=== PATIENT | female | born 1985 | race Caucasian/White ===

== ENCOUNTER 2016-11-14 23:33 | Emergency (ER) | payer BC ==
[2016-11-14 23:34] VITALS: BMI 27.3
[2016-11-14 23:57] VITALS: O2SAT 100
[2016-11-15] MEDS ORDERED: Sodium Chloride 0.9% 500 ML IV ONE (00:57)
[2016-11-15 01:25] LABS: BASO # 0.1 K/uL (0.0-0.2); BASO % 1.2 % (0.0-2.0); EOS # 0.7 K/uL (0.0-0.7); EOS % 5.8 % (0.0-4.0); HEMATOCRIT 39.6 % (34.0-47.0); LYMPH # 3.9 K/uL (1.0-4.3); LYMPH % 34.7 % (20.0-40.0); MEAN CELL VOLUME 90.3 fL (81.0-99.0); MEAN CORPUSCULAR HEMOGLOBIN 30.4 pg (27.0-31.0); MEAN CORPUSCULAR HGB CONC 33.7 g/dL (33.0-37.0); MEAN PLATELET VOLUME 7.8 fL (7.2-11.7); MONO # 0.7 K/uL (0.0-0.8); MONO % 5.9 % (0.0-10.0); RED CELL DISTRIBUTION WIDTH 13.2 % (11.5-14.5); WHITE BLOOD COUNT 11.2 K/uL (4.8-10.8)
[2016-11-15 01:28] LABS: RBC URINE 54 /hpf (0-3); URINE BILIRUBIN NEGATIVE (NEGATIVE); URINE BLOOD 2+ (NEGATIVE); URINE COLOR Yellow (YELLOW); URINE GLUCOSE (UA) NORMAL (Normal); URINE KETONE NEGATIVE (NEGATIVE); URINE LEUKOCYTE ESTERASE NEG Leu/uL (Negative); URINE PROTEIN NEGATIVE (NEGATIVE); URINE UROBILINOGEN NORMAL mg/dL (0.2-1.0); WBC URINE 1 /hpf (0-5)
[2016-11-15 01:34] LABS: CHLORIDE 100 mmol/L (98-107); POTASSIUM 4.3 mmol/L (3.6-5.2); SODIUM 139 mmol/L (132-148)
[2016-11-15 01:36] LABS: BILIRUBIN,TOTAL 0.7 mg/dL (0.2-1.3); GFR AFRICAN-AMERICAN > 60
[2016-11-15 01:37] LABS: ALB/GLOB RATIO 1.3 (1.0-2.1); ALKALINE PHOSPHATASE 72 U/L (38-126); ALT/SGPT 20 U/L (9-52); AST/SGOT 27 U/L (14-36); BLOOD UREA NITROGEN 17 mg/dL (7-17); CALCIUM 8.8 mg/dl (8.6-10.4); CARBON DIOXIDE 26 mmol/L (22-30); GLUCOSE,RANDOM 88 mg/dL (65-105); TOTAL PROTEIN 7.4 g/dL (6.3-8.3)
[2016-11-15] MEDS ORDERED: Iodixanol 320 mg/ml 150 ml Bottle IV ONE (02:06)
--- NOTE | 2016-11-15 02:36 | C.PDOC ---
Time Seen by Provider: 11/15/16 00:30 Chief Complaint (Nursing): Female Genitourinary Recent travel outside of the [place]: No Past Medical History Vital Signs: Last Vital Signs Temp 98.1 F 11/14/16 23:55 Pulse 70 11/14/16 23:55 Resp 16 11/14/16 23:55 BP 100/64 11/14/16 23:55 Pulse Ox 100 11/14/16 23:55 - [facility] Procedures MANUAL ASSIST DELIV NEC (03/25/15) Family History: States: Unknown Family Hx - Social History Hx Alcohol Use: No Hx Substance Use: No - Immunization History Hx Tetanus Toxoid Vaccination: No Hx Influenza Vaccination: No Hx Pneumococcal Vaccination: No ED Course And Treatment - Laboratory Results Result Diagrams: 11/15/16 01:18 11/15/16 01:18 O2 Sat by Pulse Oximetry: 100
--- NOTE | 2016-11-15 02:41 | C.PDOC ---
History Of Present Illness 31 yo female w/o significant PMHx come in for evaluation of intermittent RLQ pain for past few weeks associated with intermittent nausea. Otherwise, pt denies high fever, chills, sore throat, vomiting, diarrhea, back pain, UTI sx. Pt also reports IUD removal " slipped down early today". Pt admits, currently has menstrual period. Ambulate to ED for evaluation, not in any apparent distress. Time Seen by Provider: 11/15/16 00:30 Chief Complaint (Nursing): Female Genitourinary History Per: Patient Onset/Duration Of Symptoms: Intermittent Episodes, Gradual Current Symptoms Are (Timing): Still Present Past Medical History Reviewed: Historical Data, Nursing Documentation, Vital Signs Vital Signs: Last Vital Signs Temp 98.1 F 11/14/16 23:55 Pulse 70 11/14/16 23:55 Resp 16 11/14/16 23:55 BP 100/64 11/14/16 23:55 Pulse Ox 100 11/15/16 02:45 - Medical History PMH: No Chronic Diseases Surgical History: No Surg Hx - [facility] Procedures MANUAL ASSIST DELIV NEC (03/25/15) Family History: States: No Known Family Hx - Social History Hx Alcohol Use: No Hx Substance Use: No - Immunization History Hx Tetanus Toxoid Vaccination: No Hx Influenza Vaccination: No Hx Pneumococcal Vaccination: No Review Of Systems Except As Marked, All Systems Reviewed And Found Negative. Constitutional: Negative for: Fever, Chills ENT: Negative for: Throat Pain Cardiovascular: Negative for: Chest Pain, Palpitations Respiratory: Negative for: Cough, Shortness of Breath Gastrointestinal: Positive for: Nausea, Abdominal Pain. Negative for: Vomiting , Diarrhea Genitourinary: Negative for: Dysuria, Frequency Musculoskeletal: Negative for: Neck Pain, Back Pain Skin: Negative for: Rash Neurological: Negative for: Weakness, Numbness, Altered Mental Status, Headache , Dizziness Physical Exam - Physical Exam Appears: Well, Non-toxic, No Acute Distress Skin: Normal Color, Warm, Dry, No Rash Head: Normacephalic Eye(s): bilateral: Normal Inspection Nose: Normal, No Discharge Oral Mucosa: Moist, No Drooling Throat: Normal, No Erythema, No Exudate, No Drooling Neck: Normal, Normal ROM, Supple Cardiovascular: Rhythm Regular Respiratory: Normal Breath Sounds, No Stridor, No Wheezing Gastrointestinal/Abdominal: Bowel Sounds (normal), Soft, Tenderness (mild RLQ tenderness), No Distention, No Guarding, No Rebound Back: Normal Inspection, No CVA Tenderness Pelvic: Vaginal Bleeding (scant vaginal bleeding noted ( currently has MP)), No Cervical Motion Tenderness, Other (IUD visualized in vaginal canal and easily removed) Extremity: Normal ROM, No Tenderness, No Pedal Edema Neurological/Psych: Oriented x3, Normal Speech ED Course And Treatment - Laboratory Results Result Diagrams: 11/15/16 01:18 11/15/16 01:18 Lab Interpretation: Normal O2 Sat by Pulse Oximetry: 100 Pulse Ox Interpretation: Normal - CT Scan/US CT abd/pelvis Other Rad Studies (CT/US): Radiology Report Reviewed CT/US Interpretation: EXAM: CT Abdomen and Pelvis With Intravenous Contrast. CLINICAL HISTORY: 31 years old, female; Pain; Abdominal pain; Localized; Right lower quadrant (rlq); Additional info: Rlq. pain. TECHNIQUE: Axial computed tomography images of the abdomen and pelvis with intravenous contrast. This CT. exam was performed using one or more of the following dose reduction techniques: automated. exposure control, adjustment of the mA and/or kV according to patient size, and/or use of iterative. reconstruction technique. Coronal and sagittal reformatted images were created and reviewed. CONTRAST: 100 mL of visipaque administered intravenously. COMPARISON: No relevant prior studies available. FINDINGS: Lower thorax: Minimal atelectasis/scarring. ABDOMEN: Liver: Unremarkable. No mass. Gallbladder and bile ducts: No calcified stones. No ductal dilation. Pancreas: No ductal dilation. No mass. Spleen: No splenomegaly. Adrenals: No mass. Kidneys and ureters: No mass. No hydronephrosis. Stomach and bowel: No definite mural thickening. No obstruction. Appendix: Normal caliber. No definite inflammation. PELVIS: Bladder: Unremarkable. Reproductive: Unremarkable as visualized. ABDOMEN and PELVIS: Intraperitoneal space: Trace free fluid within pelvis. No free air. Bones/joints: No acute fracture. Soft tissues: Unremarkable. Vasculature: Unremarkable. No abdominal aortic aneurysm. Lymph nodes: No pathologically enlarged lymph nodes. IMPRESSION: 1. No definite acute intraabdominal abnormality. 2. Incidental/non-acute findings are described above. Thank you for allowing us to participate in the care of your patient. Dictated and Authenticated by: Que Maradiaga MD. 11/15/2016 2:58 AM Eastern Time ([place] & [place]) Progress Note: Adrenals: No mass. Kidneys and ureters: No mass. No hydronephrosis. Stomach and bowel: No definite mural thickening. No obstruction. Appendix: Normal caliber. No definite inflammation. PELVIS: Bladder: Unremarkable. Reproductive: Unremarkable as visualized. ABDOMEN and PELVIS: Intraperitoneal space: Trace free fluid within pelvis. No free air. Bones/joints: No acute fracture. Soft tissues: Unremarkable. Vasculature: Unremarkable. No abdominal aortic aneurysm. Lymph nodes: No pathologically enlarged lymph nodes. IMPRESSION: 1. No definite acute intraabdominal abnormality. 2. Incidental/non-acute findings are described above. Thank you for allowing us to participate in the care of your patient. Dictated and Authenticated by: Que Maradiaga MD. 11/15/2016 2:58 AM Eastern Time ([place] & [place]) Disposition Counseled Patient/Family Regarding: Studies Performed, Diagnosis, Need For Followup - Disposition Referrals: [facility] [Outside] [facility] [Outside] Disposition: HOME/ ROUTINE Disposition Time: 03:05 Condition: STABLE Additional Instructions: Follow up with PMD and [facility] in 2-3 days for re-evaluation. Return to ED if any worsening or new changes. Instructions: Abdominal Pain (ED), Vaginal Foreign Body (ED) Print Language: POLISH - Clinical Impression Clinical Impression: Abdominal pain, Encounter for IUD removal Procedures - Foreign Body Removal Consent Obtained: verbal consent Time Out Performed: Yes Site: vagina Description of foreign body: other (IUD) Sedation/Analgesia: none Technique: manual removal Confirmed by:: direct visualization Complications:: None Neurovascular: Normal distal pulse, Normal capillary
--- NOTE | 2016-11-15 02:58 | CT ---
EXAM: CT Abdomen and Pelvis With Intravenous Contrast. CLINICAL HISTORY: 31 years old, female; Pain; Abdominal pain; Localized; Right lower quadrant (rlq); Additional info: Rlq pain TECHNIQUE: Axial computed tomography images of the abdomen and pelvis with intravenous contrast. This CT exam was performed using one or more of the following dose reduction techniques: automated exposure control, adjustment of the mA and/or kV according to patient size, and/or use of iterative reconstruction technique. Coronal and sagittal reformatted images were created and reviewed. CONTRAST: 100 mL of visipaque administered intravenously. COMPARISON: No relevant prior studies available. FINDINGS: Lower thorax: Minimal atelectasis/scarring. ABDOMEN: Liver: Unremarkable. No mass. Gallbladder and bile ducts: No calcified stones. No ductal dilation. Pancreas: No ductal dilation. No mass. Spleen: No splenomegaly. Adrenals: No mass. Kidneys and ureters: No mass. No hydronephrosis. Stomach and bowel: No definite mural thickening. No obstruction. Appendix: Normal caliber. No definite inflammation. PELVIS: Bladder: Unremarkable. Reproductive: Unremarkable as visualized. ABDOMEN and PELVIS: Intraperitoneal space: Trace free fluid within pelvis. No free air. Bones/joints: No acute fracture. Soft tissues: Unremarkable. Vasculature: Unremarkable. No abdominal aortic aneurysm. Lymph nodes: No pathologically enlarged lymph nodes. IMPRESSION: 1. No definite acute intraabdominal abnormality. 2. Incidental/non-acute findings are described above.
[2016-11-15 03:29] VITALS: BP 118/64; PULSE 63; RESP 15; TEMP 98.3
== END 2016-11-15 03:23 | disposition home or self-care (01) ==
LOC: C.ER 23:33
DX: R10.31 Right lower quadrant pain (principal); Z30.432 Encounter for removal of intrauterine contraceptive device
CPT/HCPCS: 74177; 80053; 81001; 83690; 84703; 85025; 96374; 99285; J1885; J7040; Q9965

== ENCOUNTER 2017-08-17 20:25 | Emergency (ER) | payer BC ==
[2017-08-17] MEDS ORDERED: Lactated Ringer's 1,000 ML IV ONE (21:04)
[2017-08-17 22:19] LABS: RBC URINE 3 /hpf (0-3); TRANSITIONAL EPITHIAL 1 /hpf (0-3); URINE BACTERIA OCC (<OCC); URINE BILIRUBIN NEGATIVE (NEGATIVE); URINE BLOOD NEGATIVE (NEGATIVE); URINE COLOR Yellow (YELLOW); URINE GLUCOSE (UA) NORMAL (Normal); URINE KETONE NEGATIVE (NEGATIVE); URINE PROTEIN NEGATIVE (NEGATIVE); WBC URINE 8 /hpf (0-5)
[2017-08-17 22:20] LABS: URINE LEUKOCYTE ESTERASE 1+ Leu/uL (Negative)
--- NOTE | 2017-08-17 23:11 | US ---
EXAM: US After First Trimester, Transabdominal CLINICAL HISTORY: 32 years old, female; Signs and symptoms; Other: Dfm; ; Additional info: Decreased movement TECHNIQUE: Real-time transabdominal obstetrical ultrasound of the maternal pelvis and a second or third trimester with image documentation. COMPARISON: No relevant prior studies available. FINDINGS: Fetus: Single live intrauterine gestation. Heart rate: heart rate of 140 beats per minute. Presentation: Vertex. Placenta: No placenta previa or abruption. Posterior fundal. Amniotic fluid: Mildly echogenic amniotic fluid with internal echoes. TRISTAN = 12.2 cm. Anatomy: No gross anomaly is appreciated. BIOMETRICS Gestational age by US: Estimated gestational age of 36 weeks 0 days by measurements. EFW: Estimated weight of 3050 g. BPD: 8.7 cm, correlating with 35 weeks 1 day. Fundal placenta. HC: 31.3 cm, correlating with 35 weeks 0 days. AC: 34.4 cm, correlating with 38 weeks 2 days. FL: 6.9 cm, correlating with 35 weeks 2 days. MATERNAL: Uterus: Unremarkable. No myometrial mass. Cervix: Not adequately visualized. Free fluid: No free fluid. IMPRESSION: 1. Single live intrauterine gestation. 2. Echogenic amniotic fluid. Clinical correlation is needed. EXAM: US Biophysical Profile Without Non-Stress Testing CLINICAL HISTORY: 32 years old, female; Signs and symptoms; Other: Dfm; ; Additional info: Decreased movement TECHNIQUE: Real-time ultrasound of the maternal pelvis for biophysical profile evaluation with image documentation. COMPARISON: No relevant prior studies available. FINDINGS: breathing movements: Present. Score 2/2. Gross body movements: Present. Score 2/2. tone: Present. Score 2/2. Qualitative amniotic fluid volume: Within normal limits. Score 2/2. IMPRESSION: Normal biophysical profile ultrasound. Score 8/8.
--- NOTE | 2017-08-17 23:35 | OBHP ---
Datetime: 08/17/2017 21:05 IP Adm Impression: , intrauterine ; No Active Labor IP Adm Impression Other: bpp8/8 IP Admit Plan: Discharge home Admit Comment, IP Provider: Patient is a 32 year old at 35w0d ADRIEL 09/21/17 by LMP presents to L+D from the office for abdominal pain and back pain x 1 week. Abdominal pain is right-sided. Patien t states that pain is constant, rates 5/10. Back pain radiates down right leg. Patient also states th at she has been having decreased movement since yesterday. Denies VB or LOF. Patient was seen i n the office today and had a cervical exam performed. Patient is a private patient of Dr Moya. Issues: Abnormal 1 hr GCT ?, 3hr GTT not done yet (per the patient) OB Hx: 1. 2002 at 38 weeks, female infant, 7lbs 1/2 oz, no complications 2. 2007 SAB, D+C 3. 2007 SAB, D+C 4. 2007 at 38 weeks, female , 7lbs 0oz, no complications 5. 2009 at 38 weeks, female infant, 6lbs 1/2oz, no complications 6. 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 Triad: 13 x regular x 3-5 days Hx of ovarian cysts Denies hx of fibroids, STIs, abnormal pap smears Allergies: NKDA Medications: PNV Medical Hx: Denies Surgical Hx: D+C x 2 Social Hx: Denies alcohol, tobacco, drug use Family Hx: Mother - healthy; Father - healthy PE: See above A/P: 32 year old at 35w0d presents with contractions, decreased FM -Stable, afebrile -CEFM and TOCO -IV fluid hydration -UA ordered -Will send for BPP -Plan discussed with attending Elizabeth Mckeon DO PGY-1 OB attending Patientw ith c/o abdominal painand decreased moevembt On arrival 3-4 cm dilated.essentially same exam as exam in offie.[facility] with irregular ctx initiall y which spaced out with iv fluids bpp 8/8 Cervix re-examined 2 hoirs alter and unchanged patient feel the discomfort is resolved patient discharged home follow up with dr cleary this week labor precautions given Extremities - PN: Normal Abdomen - PN: Normal Lungs - PN: Normal Heart - PN: Normal General - PN: Normal FHR - Baseline A Provider: 140 Contraction Comments Provider: occasional Comments, ACOG Physical Exam: VSS Gen: AAOx3, uncomfortable Abd: Soft, gravid Ext: No clubbing, cyanosis, edema SVE: 3-4/70/-3 EGA AdmitDate IP: 35.0 Vital Signs Provider: Reviewed IP Chief Complaint: Uterine contractions; Decreased movement NICHD Variability Prov Fetus A: Moderate 6-25bpm FHR Category Provider Fetus A: Category I NICHD Decel Fetus A IP Provider: None Dilatation, Provider: 3-4 Effacement, Provider: 70 Station, Provider: -3
[2017-08-18 03:59] VITALS: BP 108/63; PULSE 81; RESP 20; TEMP 97.9
== END 2017-08-17 23:00 | disposition home or self-care (01) ==
LOC: C.EROB 20:25
DX: O47.03 False labor before 37 completed weeks of gestation, third trimester (principal); O36.8130 Decreased fetal movements, third trimester, not applicable or unspecified; Z3A.36 36 weeks gestation of pregnancy
CPT/HCPCS: 76815; 76818; 81001; 99283; J7120

== ENCOUNTER 2017-08-28 07:58 | Inpatient (IN) | payer BC ==
[2017-08-28 09:15] VITALS: BMI 29.5
[2017-08-28] MEDS ORDERED: Lactated Ringer's 1,000 ML IV SCH (09:15)
--- NOTE | 2017-08-28 09:33 | OBADHP ---
Datetime: 08/28/2017 09:24 Admit Comment, IP Provider: 32yo with IUP at 38wks based on sonogram done on 03/09/17. Pt report s intermittent pelvic pain, denies VB or LOF. Pt from Dr Duff private office. [place]- irregular, FHR- 160s regular with some variables, Cx- 3-4/70/0, Vtx presentation. Assessment: IUP at 38wks im Early Labor Plan as per Dr Duff: Admit to Labor and delivery. Pitocin for augmentation of labor. Pelvic Type - PN: Adequate Extremities - PN: Normal Abdomen - PN: Normal Back - PN: Normal Lungs - PN: Normal Heart - PN: Normal Neurologic - PN: Normal General - PN: Normal Presentation-Admit: Vertex FHR - Baseline A Provider: 160 Membranes, Provider: Intact Contraction Comments Provider: Q 3-8 Comments, ACOG Physical Exam: Abd: Soft, NT, BS- present Gestation - Est Wks by US: 38.0 Vital Signs Provider: Reviewed IP Chief Complaint: Uterine contractions; Maternal discomfort NICHD Variability Prov Fetus A: Moderate 6-25bpm NICHD Accel Fetus A IP Provider: 15X15 FHR Category Provider Fetus A: Category I NICHD Decel Fetus A IP Provider: Early; Variable Dilatation, Provider: 3-4 Effacement, Provider: 70 Station, Provider: -3 Genitourinary Exam: Normal EGA AdmitDate IP: 38.0 IP Adm Impression: Term, intrauterine ; Active labor IP Admit Plan: Admit to unit; Initiate labor protocol Datetime: 08/17/2017 21:05 IP Adm Impression Other: bpp8/8
[2017-08-28] MEDS ORDERED: Oxytocin 30 UNIT 30 UNITS/500 ML BAG IV SCH (09:45)
[2017-08-28] MEDS ORDERED: Oxytocin 30 UNIT 30 UNITS/500 ML BAG IV ONE (10:48)
[2017-08-28 10:57] LABS: BASO % 0.3 % (0.0-2.0); EOS # 0.1 K/uL (0.0-0.7); EOS % 1.3 % (0.0-4.0); HEMOGLOBIN 13.1 g/dL (11.0-16.0); LYMPH # 2.4 K/uL (1.0-4.3); LYMPH % 21.7 % (20.0-40.0); MEAN CELL VOLUME 87.5 fL (81.0-99.0); MEAN CORPUSCULAR HEMOGLOBIN 29.2 pg (27.0-31.0); MEAN CORPUSCULAR HGB CONC 33.4 g/dL (33.0-37.0); MEAN PLATELET VOLUME 8.4 fL (7.2-11.7); MONO # 0.8 K/uL (0.0-0.8); MONO % 6.7 % (0.0-10.0); NEUT # 7.8 K/uL (1.8-7.0); RBC 4.48 Mil/uL (3.80-5.20); RED CELL DISTRIBUTION WIDTH 16.7 % (11.5-14.5); WHITE BLOOD COUNT 11.2 K/uL (4.8-10.8)
[2017-08-28 10:58] LABS: SQUAMOUS EPITHIAL 8 /hpf (0-5); URINE BACTERIA RARE (<OCC); URINE BILIRUBIN NEGATIVE (NEGATIVE); URINE BLOOD 1+ (NEGATIVE); URINE CLARITY Hazy (Clear); URINE COLOR Yellow (YELLOW); URINE GLUCOSE (UA) NORMAL (Normal); URINE LEUKOCYTE ESTERASE 3+ Leu/uL (Negative); URINE NITRATE NEGATIVE (NEGATIVE); URINE PROTEIN NEGATIVE (NEGATIVE)
[2017-08-28 11:01] LABS: ALB/GLOB RATIO 1.1 (1.0-2.1); ALBUMIN 3.6 g/dL (3.5-5.0); ALT/SGPT 47 U/L (9-52); AST/SGOT 29 U/L (14-36); BLOOD UREA NITROGEN 7 mg/dL (7-17); CALCIUM 9.1 mg/dl (8.6-10.4); GFR AFRICAN-AMERICAN > 60; GFR NON-AFRICAN AMERICAN > 60
[2017-08-28] MEDS ORDERED: Bupivacaine HCl/FentaNYL Cit 100 ML EPI ONE (11:33)
[2017-08-28] MEDS ORDERED: Benzocaine/Menthol 20%-0.5% Topical Spray (60 ml) TOP PRN (13:50)
[2017-08-28 17:31] LABS: BASO # 0.1 K/uL (0.0-0.2); BASO % 0.4 % (0.0-2.0); EOS % 0.2 % (0.0-4.0); HEMOGLOBIN 13.7 g/dL (11.0-16.0); LYMPH # 1.7 K/uL (1.0-4.3); MEAN CORPUSCULAR HEMOGLOBIN 28.9 pg (27.0-31.0); MEAN CORPUSCULAR HGB CONC 33.2 g/dL (33.0-37.0); MEAN PLATELET VOLUME 7.9 fL (7.2-11.7); MONO # 0.6 K/uL (0.0-0.8); MONO % 3.6 % (0.0-10.0); NEUT # 13.2 K/uL (1.8-7.0); NEUT % 84.8 % (50.0-75.0); RBC 4.74 Mil/uL (3.80-5.20); RED CELL DISTRIBUTION WIDTH 17.1 % (11.5-14.5); WHITE BLOOD COUNT 15.6 K/uL (4.8-10.8)
[2017-08-28] MEDS ORDERED: Oxycodone/Acetaminophen 5/325 mg Tab ONE (17:38)
[2017-08-28] MEDS: Oxycodone/Acetaminophen 5/325 mg Tab PO PRN ×2 (17:38→22:38)
[2017-08-29] MEDS: Oxycodone/Acetaminophen 5/325 mg Tab PO PRN ×4 (03:00→18:07)
[2017-08-29 07:56] LABS: BASO # 0.1 K/uL (0.0-0.2); BASO % 0.4 % (0.0-2.0); EOS # 0.2 K/uL (0.0-0.7); EOS % 1.5 % (0.0-4.0); HEMOGLOBIN 11.8 g/dL (11.0-16.0); LYMPH # 2.8 K/uL (1.0-4.3); LYMPH % 17.8 % (20.0-40.0); MEAN CELL VOLUME 87.4 fL (81.0-99.0); MEAN CORPUSCULAR HEMOGLOBIN 29.6 pg (27.0-31.0); MEAN CORPUSCULAR HGB CONC 33.8 g/dL (33.0-37.0); MONO # 0.8 K/uL (0.0-0.8); MONO % 5.4 % (0.0-10.0); NEUT # 11.6 K/uL (1.8-7.0); NEUT % 74.9 % (50.0-75.0); WHITE BLOOD COUNT 15.5 K/uL (4.8-10.8)
--- NOTE | 2017-08-29 15:02 | CP.PCM.PN ---
Subjective - Date & Time of Evaluation Date of Evaluation: 08/29/17 Time of Evaluation: 15:00 - Subjective Subjective: Patient denies any acute complaints. She is ambulating, voiding, tolerating regular diet. Pain is well controlled. She is currently breast feeding. Objective - Vital Signs/Intake and Output Vital Signs (last 24 hours): Temp Pulse Resp BP Pulse Ox 97.8 F 85 18 101/64 99 08/29/17 08:00 08/29/17 08:00 08/29/17 08:00 08/29/17 08:00 08/29/17 08:00 - Medications Medications: Current Medications Acetaminophen (Tylenol 325mg Tab) 650 mg PO Q6 PRN PRN Reason: Fever >100.4 F Benzocaine/Menthol (Dermoplast 20%-0.5%) 0 ml TOP Q6H PRN PRN Reason: Perineal Discomfort Docusate Sodium (Colace) 100 mg PO BID [facility] Last Admin: 08/29/17 09:35 Dose: 100 mg Ferrous Sulfate (Feosol) 325 mg PO DAILY [facility] Last Admin: 08/29/17 09:35 Dose: 325 mg Lactated Ringer's (Lactated Ringer's) 1,000 mls @ 0 mls/hr IV .Q0M [facility] PRN Reason: Per Protocol Oxytocin (Pitocin) 30 units in 500 mls @ 2 mls/hr IV .Q24H IAN; 0.002 UNIT/MIN PRN Reason: Protocol Last Admin: 08/28/17 10:53 Dose: 2 mls/hr Oxytocin (Pitocin 20 Units In Lr) 1,000 mls @ 125 mls/hr IV .Q8H [facility] PRN Reason: Protocol Last Admin: 08/28/17 13:57 Dose: 125 mls/hr Ibuprofen (Motrin Tab) 600 mg PO Q6 PRN PRN Reason: Pain, Mild (1-3) Last Admin: 08/29/17 13:32 Dose: 600 mg Oxycodone/Acetaminophen (Percocet 5/325 Mg Tab) 1 tab PO Q4H PRN PRN Reason: Pain, moderate (4-7) Stop: 08/31/17 13:51 Last Admin: 08/29/17 13:31 Dose: 1 tab Sennosides (Senokot Tab) 17.2 mg PO DAILY [facility] Last Admin: 08/29/17 09:35 Dose: 17.2 mg - Labs Labs: 08/29/17 07:43 08/28/17 10:38 - Constitutional Appears: Well, Non-toxic, No Acute Distress - Head Exam Head Exam: ATRAUMATIC - Eye Exam Eye Exam: Normal appearance - ENT Exam ENT Exam: Mucous Membranes Moist, Normal Exam - Neck Exam Neck Exam: Full ROM - Respiratory Exam Respiratory Exam: NORMAL BREATHING PATTERN - Cardiovascular Exam Cardiovascular Exam: REGULAR RHYTHM - GI/Abdominal Exam GI & Abdominal Exam: Soft - Rectal Exam Rectal Exam: Hemorrhoids - Exam Exam: NORMAL INSPECTION External exam: NORMAL EXTERNAL EXAM - Extremities Exam Extremities Exam: Normal Inspection - Neurological Exam Neurological Exam: Alert, Awake, Oriented x3 - Psychiatric Exam Psychiatric exam: Normal Affect, Normal Mood - Skin Skin Exam: Normal Color
--- NOTE | 2017-08-29 15:08 | CP.PCM.DIS ---
Provider - Provider Date of Admission: 08/28/17 09:14 Attending physician: Shi Moya Time Spent in preparation of Discharge (in minutes): 15 Diagnosis - Discharge Diagnosis (1) Spontaneous vaginal delivery Status: Acute Hospital Course - Lab Results Lab Results: Most Recent Lab Values WBC 15.5 K/uL (4.8-10.8) H 08/29/17 07:43 RBC 4.00 Mil/uL (3.80-5.20) 08/29/17 07:43 Hgb 11.8 g/dL (11.0-16.0) 08/29/17 07:43 Hct 35.0 % (34.0-47.0) 08/29/17 07:43 MCV 87.4 fL (81.0-99.0) 08/29/17 07:43 MCH 29.6 pg (27.0-31.0) 08/29/17 07:43 MCHC 33.8 g/dL (33.0-37.0) 08/29/17 07:43 RDW 17.0 % (11.5-14.5) H 08/29/17 07:43 Plt Count 173 K/uL (130-400) 08/29/17 07:43 MPV 8.0 fL (7.2-11.7) 08/29/17 07:43 Neut % (Auto) 74.9 % (50.0-75.0) 08/29/17 07:43 Lymph % (Auto) 17.8 % (20.0-40.0) L 08/29/17 07:43 Weber % (Auto) 5.4 % (0.0-10.0) 08/29/17 07:43 Eos % (Auto) 1.5 % (0.0-4.0) 08/29/17 07:43 Baso % (Auto) 0.4 % (0.0-2.0) 08/29/17 07:43 Neut # 11.6 K/uL (1.8-7.0) H 08/29/17 07:43 Lymph # 2.8 K/uL (1.0-4.3) 08/29/17 07:43 Weber # 0.8 K/uL (0.0-0.8) 08/29/17 07:43 Eos # 0.2 K/uL (0.0-0.7) 08/29/17 07:43 Baso # 0.1 K/uL (0.0-0.2) 08/29/17 07:43 Sodium 131 mmol/L (132-148) L 08/28/17 10:38 Potassium 4.1 mmol/L (3.6-5.2) 08/28/17 10:38 Chloride 101 mmol/L (98-107) 08/28/17 10:38 Carbon Dioxide 22 mmol/L (22-30) 08/28/17 10:38 Anion Gap 12 (10-20) 08/28/17 10:38 BUN 7 mg/dL (7-17) 08/28/17 10:38 Creatinine 0.5 mg/dL (0.7-1.2) L 08/28/17 10:38 Est GFR ( Amer) > 60 08/28/17 10:38 Est GFR (Non-Af Amer) > 60 08/28/17 10:38 Random Glucose 65 mg/dL (65-105) 08/28/17 10:38 Calcium 9.1 mg/dl (8.6-10.4) 08/28/17 10:38 Total Bilirubin 1.4 mg/dL (0.2-1.3) H 08/28/17 10:38 AST 29 U/L (14-36) 08/28/17 10:38 ALT 47 U/L (9-52) 08/28/17 10:38 Alkaline Phosphatase 168 U/L (38-126) H 08/28/17 10:38 Total Protein 7.0 g/dL (6.3-8.3) 08/28/17 10:38 Albumin 3.6 g/dL (3.5-5.0) 08/28/17 10:38 Globulin 3.3 gm/dL (2.2-3.9) 08/28/17 10:38 Albumin/Globulin Ratio 1.1 (1.0-2.1) 08/28/17 10:38 Urine Color Yellow (YELLOW) 08/28/17 10:38 Urine Clarity Hazy (Clear) 08/28/17 10:38 Urine pH 6.0 (5.0-8.0) 08/28/17 10:38 Ur Specific [place] 1.017 (1.003-1.030) 08/28/17 10:38 Urine Protein Negative mg/dL (NEGATIVE) 08/28/17 10:38 Urine Glucose (UA) Normal mg/dL (Normal) 08/28/17 10:38 Urine Ketones Negative mg/dL (NEGATIVE) 08/28/17 10:38 Urine Blood 1+ (NEGATIVE) H 08/28/17 10:38 Urine Nitrate Negative (NEGATIVE) 08/28/17 10:38 Urine Bilirubin Negative (NEGATIVE) 08/28/17 10:38 Urine Urobilinogen 2.0 mg/dL (0.2-1.0) H 08/28/17 10:38 Ur Leukocyte Esterase 3+ Stefanie/uL (Negative) H 08/28/17 10:38 Urine WBC (Auto) 18 /hpf (0-5) H 08/28/17 10:38 Urine RBC (Auto) 8 /hpf (0-3) H 08/28/17 10:38 Ur Squamous Epith Cells 8 /hpf (0-5) H 08/28/17 10:38 Urine Bacteria Rare (<OCC) 08/28/17 10:38 RPR Nonreactive (NONREACTIVE) 08/28/17 10:38 HIV 1&2 Antibody Screen Negative (NEGATIVE) 08/28/17 10:38 Blood Type O POSITIVE 08/28/17 10:38 Antibody Screen Negative 08/28/17 10:38 - Hospital Course Hospital Course: Patient underwent uncomplicated vaginal delivery. bleeding was noted and was controlled with the use of cytotec and methergine. course unremarkable. Discharge Exam - Head Exam Head Exam: ATRAUMATIC - Eye Exam Eye Exam: Normal appearance - ENT Exam ENT Exam: Mucous Membranes Moist, Normal Exam - Neck Exam Neck exam: Full Rom - Respiratory Exam Respiratory Exam: NORMAL BREATHING PATTERN - Cardiovascular Exam Cardiovascular Exam: REGULAR RHYTHM - GI/Abdominal Exam GI & Abdominal Exam: Soft, Unremarkable - Rectal Exam Rectal Exam: Hemorrhoids - Exam Exam: NORMAL INSPECTION External exam: NORMAL EXTERNAL EXAM - Extremities Exam Extremities exam: normal inspection - Neurological Exam Neurological exam: Alert, Oriented x3 - Psychiatric Exam Psychiatric exam: Normal Affect, Normal Mood Discharge Plan - Follow Up Plan Condition: GOOD Disposition: DISCHARGED TO HOME CARE
[2017-08-29] MEDS ORDERED: Influenza Vaccine 60 mcg/0.5 mL SYR (4YR UP) IM ONE (15:36)
[2017-08-30] MEDS: Oxycodone/Acetaminophen 5/325 mg Tab PO PRN (04:00)
[2017-08-30 08:32] VITALS: BP 103/70; PULSE 89; TEMP 97.7; O2SAT 100
[2017-08-30 22:54] VITALS: RESP 19
== END 2017-08-30 14:50 | disposition home health service (06) | DRG 774 ==
LOC: C.EROB 07:58 → C.4D 09:14 → C.4M 18:23
PROVIDERS: ADMIT Obstetrics & Gynecology; ATTEND Obstetrics & Gynecology
PROC: 10E0XZZ Delivery of Products of Conception, External Approach (ICD-10-PCS; principal; 2017-08-28)
DX: O72.1 Other immediate postpartum hemorrhage (principal); Z37.0 Single live birth; Z3A.38 38 weeks gestation of pregnancy